=== PATIENT | female | born 2000 | race Two or more races ===

== ENCOUNTER 2023-01-21 19:40 | Emergency (ER) | payer MEDICAID ==
[~2023-01-21] VITALS: Ht 147.3 cm; Wt 41.0 kg
[2023-01-21 19:42] VITALS: BP 124/63; PULSE 89; RESP 16; TEMP 99
[2023-01-21 20:02] LABS: APPEARANCE,URINE CLEAR (CLEAR); BILIRUBIN,URINE NEGATIVE (NEGATIVE); COLOR,URINE LIGHT YELLOW (YELLOW); GLUCOSE, URINE (UA) NEGATIVE (NEGATIVE); KETONES,URINE NEGATIVE (NEGATIVE); LEUKOCYTE ESTERASE ,URINE NEGATIVE (NEGATIVE); NITRATE,URINE NEGATIVE (NEGATIVE); OCCULT BLOOD,URINE NEGATIVE (NEGATIVE); PH,URINE 6.5 (5.0-8.0); PROTEIN,URINE NEGATIVE (NEGATIVE); UROBILINOGEN,URINE <=1.0 mg/dL (<=1.0)
[2023-01-21 20:03] LABS: BASOPHILS % (AUTO) 0.3 % (0.0-2.0); EOSINOPHILS % (AUTO) 0.9 % (1.0-6.0); HEMATOCRIT 38.5 % (36-46); LYMPHOCYTES # (AUTO) 1.5 K/uL (1.0-4.8); LYMPHOCYTES % (AUTO) 26.6 % (22.0-44.0); MEAN CORPUSCULAR HEMOGLOBIN 31.1 pg (26.0-34.0); MEAN CORPUSCULAR HGB CONC 33.8 G/dL (31.0-37.0); MEAN CORPUSCULAR VOLUME 92 fL (80-100); MONOCYTES # (AUTO) 0.5 K/uL (0.1-1.0); NEUTROPHILS # (AUTO) 3.6 K/uL (1.8-7.7); NEUTROPHILS % (AUTO) 64.2 % (40.0-70.0); PLATELET COUNT (AUTO) 210 K/uL (150-450); RED BLOOD CELL COUNT(AUTO) 4.19 MIL/uL (4.00-5.20); RED CELL DISTRIBUTION WIDTH 13.1 % (11.5-14.5); WHITE BLOOD COUNT (AUTO) 5.7 K/uL (4.5-11.0)
[2023-01-21 20:13] LABS: ANION GAP 8 mmol/L (8-16); CALCIUM, TOTAL 9.1 mg/dL (8.8-10.5); CARBON DIOXIDE 28 mmol/L (22-29); CHLORIDE 101 mmol/L (98-107); CREATININE 0.61 mg/dL (0.60-1.30); GLOMERULAR FILTR. RATE CALC > 60 mL/min (>60); GLUCOSE,RANDOM 109 mg/dL (70-110); POTASSIUM 3.4 mmol/L (3.5-5.1); SODIUM SERUM 137 mmol/L (136-145); UREA NITROGEN, BLOOD 8 mg/dL (7-18)
[2023-01-21 20:14] LABS: SQUAMOUS EPITHELIAL CELL,UR Many /LPF (None Seen)
[2023-01-21 20:15] LABS: BACTERIA,URINE None Seen /HPF (None Seen); RBC,URINE None Seen /HPF (0-2); WBC,URINE 0-2 /HPF (0-5)
[2023-01-21 20:21] LABS: LACTIC ACID 1.1 mmol/L (0.4-2.0)
[2023-01-21 20:24] LABS: HCG,QUANTITATIVE < 1 mIU/mL (0-6)
[2023-01-21] MEDS ORDERED: ACETAMINOPHEN 325 MG TABLET PO ONE (20:30)
[2023-01-21 20:41] LABS: COVID AG,FIA SOURCE NASAL SWAB
[2023-01-21 21:01] LABS: SARS-COV2 (COVID) ANTIGEN,FIA Negative (Negative)
[2023-01-21 21:06] LABS: INFLUENZA TYPE A NEGATIVE FOR TYPE A (NEGATIVE); INFLUENZA TYPE B NEGATIVE FOR TYPE B (NEGATIVE)
== END 2023-01-21 21:16 | disposition home or self-care (01) ==
LOC: EMS 19:42
DX: B34.9 Viral infection, unspecified (principal); R10.9 Unspecified abdominal pain; Z20.822 Contact with and (suspected) exposure to COVID-19
CPT/HCPCS: 80048; 81001; 83605; 84702; 85025; 87804; 99283

== ENCOUNTER 2023-02-11 12:52 | Emergency (ER) | payer MEDICAID ==
[~2023-02-11] VITALS: Ht 147.3 cm; Wt 43.0 kg
[2023-02-11 13:08] VITALS: BP 116/70; PULSE 98; RESP 18; TEMP 99.2
[2023-02-11 13:26] LABS: COVID AG,FIA SOURCE NASAL SWAB
[2023-02-11 13:51] LABS: SARS-COV2 (COVID) ANTIGEN,FIA Negative (Negative)
[2023-02-11 13:57] LABS: INFLUENZA TYPE A NEGATIVE FOR TYPE A (NEGATIVE); INFLUENZA TYPE B NEGATIVE FOR TYPE B (NEGATIVE)
== END 2023-02-11 15:16 | disposition home or self-care (01) ==
LOC: EMS 14:59
DX: O26.891 Other specified pregnancy related conditions, first trimester (principal); B34.9 Viral infection, unspecified; Z20.822 Contact with and (suspected) exposure to COVID-19
CPT/HCPCS: 99283; 87426; 87804; 81025; C9803